=== PATIENT | male | born 1985 | race Caucasian/White ===

== ENCOUNTER 2021-03-07 14:58 | Emergency (ER) | payer OTHER ==
[2021-03-07 15:14] VITALS: BP 129/82; TEMP 97.9; BMI 28.0
[2021-03-07] MEDS ORDERED: SODIUM CHLORIDE 1,000 ML IV STA (15:39)
[2021-03-07] MEDS ORDERED: KETOROLAC TROMETHAMINE 30 MG/1 ML VIAL IVPUSH ONE (15:39)
[2021-03-07 18:06] LABS: BASO % 0.4 % (0-2.0); EOS % 0.4 % (0-4.5); HEMATOCRIT 44.8 % (35.4-49); HEMOGLOBIN 14.9 GM/dL (11.7-16.9); LYMPH % 20.1 % (8-40); MCH 26.9 pg (25.7-33.7); MCHC 33.3 g/dl (32.0-35.9); MEAN CELL VOLUME 80.8 fl (80-96); MEAN PLT VOLUME 9.1 fl (7.5-11.1); MONO % 6.6 % (3.8-10.2); NEUT % 72.5 % (42.8-82.8); PLATELET COUNT 210 K/MM3 (134-434); RBC 5.54 M/mm3 (4.00-5.60); RDW 13.5 % (11.9-15.9); WHITE BLOOD COUNT 13.9 K/mm3 (4.0-10.0)
[2021-03-07 18:28] LABS: BLOOD UREA NITROGEN 20.3 mg/dL (7-18)
[2021-03-07 18:31] LABS: CREATININE 1.1 mg/dL (0.55-1.3)
[2021-03-07 18:33] LABS: BILIRUBIN,TOTAL 0.7 mg/dL (0.2-1); TOT PROT 7.9 g/dl (6.4-8.2)
[2021-03-07 21:59] VITALS: PULSE 84
== END 2021-03-07 21:59 | disposition home or self-care (01) ==
LOC: JER 14:58
PROC: 3E0333Z Introduction of Anti-inflammatory into Peripheral Vein, Percutaneous Approach (ICD-10-PCS; principal; 2021-03-07)
PROC: 3E0337Z Introduction of Electrolytic and Water Balance Substance into Peripheral Vein, Percutaneous Approach (ICD-10-PCS; 2021-03-07)
DX: K57.92 Diverticulitis of intestine, part unspecified, without perforation or abscess without bleeding (principal)
CPT/HCPCS: 36415; 74177-TC; 80053; 83690; 85025; 99285-25; Q9967

== ENCOUNTER 2021-03-10 17:44 | Inpatient (IN) | payer OTHER ==
[2021-03-10 18:59] LABS: BASO % 0.4 % (0-2.0); EOS % 1.3 % (0-4.5); HEMATOCRIT 44.4 % (35.4-49); HEMOGLOBIN 14.5 GM/dL (11.7-16.9); LYMPH % 33.5 % (8-40); MCH 26.8 pg (25.7-33.7); MCHC 32.7 g/dl (32.0-35.9); MEAN PLT VOLUME 9.1 fl (7.5-11.1); MONO % 8.5 % (3.8-10.2); NEUT % 56.3 % (42.8-82.8); PLATELET COUNT 248 K/MM3 (134-434); RBC 5.42 M/mm3 (4.00-5.60); RDW 13.7 % (11.9-15.9); WHITE BLOOD COUNT 8.3 K/mm3 (4.0-10.0)
[2021-03-10 19:23] LABS: ALBUMIN 4.1 g/dl (3.4-5.0); BLOOD UREA NITROGEN 7.9 mg/dL (7-18); CALCIUM 8.9 mg/dL (8.5-10.1)
[2021-03-10] MEDS ORDERED: LACTATED RINGERS SOLUTION 1000 ML INFUS.BAG IV ONE (19:26)
[2021-03-10 19:27] LABS: BILIRUBIN,TOTAL 0.4 mg/dL (0.2-1); TOT PROT 7.8 g/dl (6.4-8.2)
[2021-03-10] MEDS ORDERED: CEFTRIAXONE 1 GM in DEXTROSE 5%-WATER - 50 ML IVPB ONE (20:44)
[2021-03-10] MEDS ORDERED: CEFTRIAXONE 1 GM/50 ML BAG ONE (21:28)
[2021-03-10 23:30] LABS: BASO % 0.9 % (0-2.0); EOS % 1.1 % (0-4.5); HEMATOCRIT 39.9 % (35.4-49); HEMOGLOBIN 13.1 GM/dL (11.7-16.9); LYMPH % 26.9 % (8-40); MCH 26.8 pg (25.7-33.7); MCHC 32.8 g/dl (32.0-35.9); MEAN CELL VOLUME 81.8 fl (80-96); MEAN PLT VOLUME 9.3 fl (7.5-11.1); MONO % 6.9 % (3.8-10.2); NEUT % 64.2 % (42.8-82.8); PLATELET COUNT 221 K/MM3 (134-434); RBC 4.88 M/mm3 (4.00-5.60); RDW 13.5 % (11.9-15.9); WHITE BLOOD COUNT 9.1 K/mm3 (4.0-10.0)
[2021-03-11 00:25] VITALS: BMI 28.1
[2021-03-11 08:20] LABS: BASO % 0.3 % (0-2.0); EOS % 1.6 % (0-4.5); HEMATOCRIT 41.1 % (35.4-49); HEMOGLOBIN 14.1 GM/dL (11.7-16.9); LYMPH % 28.2 % (8-40); MCH 27.3 pg (25.7-33.7); MCHC 34.2 g/dl (32.0-35.9); MEAN PLT VOLUME 8.6 fl (7.5-11.1); MONO % 8.6 % (3.8-10.2); NEUT % 61.3 % (42.8-82.8); PLATELET COUNT 232 K/MM3 (134-434); RBC 5.14 M/mm3 (4.00-5.60); RDW 13.2 % (11.9-15.9); WHITE BLOOD COUNT 7.4 K/mm3 (4.0-10.0)
[2021-03-11 08:28] LABS: INR 1.18 (0.83-1.09); PROTHROMBIN TIME (PATIENT) 14.4 SEC (9.7-13.0)
[2021-03-11 08:30] LABS: ACTIVATED PTT 29.5 SECONDS (25.2-36.5)
[2021-03-11 08:44] LABS: CALCIUM 8.8 mg/dL (8.5-10.1)
[2021-03-11 08:45] LABS: ALBUMIN 3.6 g/dl (3.4-5.0); BLOOD UREA NITROGEN 6.9 mg/dL (7-18); MAGNESIUM 1.9 mg/dL (1.8-2.4)
[2021-03-11 08:47] LABS: PHOSPHOROUS 2.8 mg/dL (2.5-4.9)
[2021-03-11 08:48] LABS: BILIRUBIN,TOTAL 0.5 mg/dL (0.2-1); TOT PROT 6.8 g/dl (6.4-8.2)
[2021-03-11 09:40] LABS: SYPHILIS W/ RPR CONF NON-REACTIVE (NONREACTIVE)
[2021-03-11 10:09] LABS: HIV INTERPRETATION NEGATIVE (NEGATIVE)
[2021-03-11] MEDS ORDERED: SODIUM CHLORIDE 1,000 ML IV SCH (11:45)
[2021-03-11 14:01] LABS: HEMATOCRIT 41.6 % (35.4-49); HEMOGLOBIN 13.8 GM/dL (11.7-16.9); MCHC 33.3 g/dl (32.0-35.9); MEAN CELL VOLUME 81.1 fl (80-96); MEAN PLT VOLUME 8.7 fl (7.5-11.1); PLATELET COUNT 234 K/MM3 (134-434); RBC 5.12 M/mm3 (4.00-5.60); RDW 13.3 % (11.9-15.9); WHITE BLOOD COUNT 6.9 K/mm3 (4.0-10.0)
[2021-03-11] MEDS ORDERED: cefTRIAXone SODIUM 1 GM VIAL ONE (20:25)
[2021-03-11] MEDS: CEFTRIAXONE 1 GM in DEXTROSE 5%-WATER - 50 ML IVPB SCH (21:04)
[2021-03-12 07:44] LABS: HEMATOCRIT 39.4 % (35.4-49); HEMOGLOBIN 13.6 GM/dL (11.7-16.9); MCH 27.6 pg (25.7-33.7); MCHC 34.4 g/dl (32.0-35.9); MEAN CELL VOLUME 80.2 fl (80-96); MEAN PLT VOLUME 8.8 fl (7.5-11.1); PLATELET COUNT 235 K/MM3 (134-434); RBC 4.92 M/mm3 (4.00-5.60); RDW 13.2 % (11.9-15.9); WHITE BLOOD COUNT 7.4 K/mm3 (4.0-10.0)
[2021-03-12 08:11] LABS: ALBUMIN 3.4 g/dl (3.4-5.0); CALCIUM 8.4 mg/dL (8.5-10.1)
[2021-03-12 08:12] LABS: BLOOD UREA NITROGEN 8.2 mg/dL (7-18)
[2021-03-12 08:15] LABS: CREATININE 1.1 mg/dL (0.55-1.3); PHOSPHOROUS 3.2 mg/dL (2.5-4.9)
[2021-03-12 08:16] LABS: BILIRUBIN,TOTAL 0.5 mg/dL (0.2-1); TOT PROT 6.8 g/dl (6.4-8.2)
[2021-03-12] MEDS ORDERED: cefTRIAXone SODIUM 1 GM VIAL ONE (09:27)
[2021-03-12] MEDS ORDERED: DEXTROSE 5%-WATER - 50 ML IVPB ONE (09:28)
[2021-03-12] MEDS: CEFTRIAXONE 1 GM in DEXTROSE 5%-WATER - 50 ML IVPB SCH (09:29)
[2021-03-12 14:41] VITALS: BP 113/74; PULSE 61; TEMP 98.7
[2021-03-14 14:11] LABS: HEP B CORE AB, TOT Negative (Negative)
== END 2021-03-12 16:10 | disposition home or self-care (01) | DRG 244 ==
LOC: JER 17:44 → JERBED 20:40 → J8W 23:50
PROVIDERS: ADMIT Hospitalist; ATTEND Internal Medicine
DX: K57.93 Diverticulitis of intestine, part unspecified, without perforation or abscess with bleeding (principal); K21.9 Gastro-esophageal reflux disease without esophagitis; K62.89 Other specified diseases of anus and rectum; R74.8 Abnormal levels of other serum enzymes; F17.210 Nicotine dependence, cigarettes, uncomplicated
CPT/HCPCS: 36415; 74177-TC; 80053; 82977; 83735; 84100; 85025; 85027; 85610; 85730; 86140; 86704; 86706; 86707; 86708; 86709; 86780; 86803; 86850; 86900; 86901; 87340; 87389; 87522; 93005; 93010; 99285-25; C9803; Q9967; U0003; U0005